=== PATIENT | male | born 1945 | race Caucasian/White ===

== ENCOUNTER 2016-07-22 07:30 | Day surgery (SDC) | payer MEDICARE ==
[~2016-07-22 07:30] MED LIST: ASPI325T PO; CARV6.25 PO; EXEN10PE SQ; GLIP5 PO; MELO7.5T PO; NEXI40CA PO; NITR0.4S SL; OXYC-360 PO; PRIN5TAB PO; SERT50 PO; ZOCO40TA PO
[2016-07-22 08:14] VITALS: BP 116/68; PULSE 78; RESP 18; TEMP 98.6; O2SAT 94
[2016-07-22 09:20] VITALS: BP 115/65; PULSE 56; RESP 18; TEMP 98.9; O2SAT 99
[2016-07-22] MEDS ORDERED: LIDOCAINE HCL 1% PF 30 ML VIAL ONE (09:23)
[2016-07-22 09:35] VITALS: BP 123/62; PULSE 71; RESP 18; O2SAT 98
--- NOTE | 2016-07-22 13:24 | RADRPT ---
EXAM DATE/TIME: 07/22/2016 08:11 [place] COMPARISON: No previous studies available for comparison. EXTERNAL COMPARISON: [facility], CT ABDOMEN & PELVIS W CONTRAST, Jul 12 2016, [facility], US ABDOMEN LIVE R, November 14, 2011, August 12, 2011, February 22, 2011, August 12, 2010, CT ABDOMEN & PELVIS W CONTRAST, October 09, 2009. INDICATIONS : Ascites. MEDICAL HISTORY : Congestive heart failure. Gastroesophageal reflux disease. Hypercholesterolemia. Arthritis. Myocardia l infarction. Diabetes. SURGICAL HISTORY : Multiple cardiac bypasses. Multiple cardiac catheters. Plates and screws in left leg. ENCOUNTER: Initial ACUITY: 3 weeks PAIN SCORE: 4/10 LOCATION: Right lower quadrant FLUID: Total volume of 4,000 cc of clear, yellow fluid was removed. Fluid was discarded. Paracentesis was therapeutic only. Post procedure scanning reveals no hematoma or other complication. TECHNIQUE: 1. Ultrasound guidance for abdominal paracentesis. 2. Paracentesis. The risks, benefits, and alternatives to ultrasound guided paracentesis were explained to the patient in detail including the risk of bleeding and infection. Written and verbal informed consent was obt ained. With the patient on the ultrasound table, ultrasound imaging was used to select the most appropriate approach for paracentesis. Overlying skin was prepped and draped in the usual sterile fashion and wi th a local anesthetic, a dermatotomy was made with an 11 blade scalpel. A 6 [place] [id number] theter was introduced into the peritoneal cavity and fluid was collected. The patient tolerated the procedure well and left the ultrasound suite in stable condition. CONCLUSION: Uncomplicated ultrasound guided paracentesis. Iván Reynoso MD on July 22, 2016 at 13:21 Board Certified Radiologist. This report was verified electronically.
== END 2016-07-22 09:50 | disposition home or self-care (01) ==
LOC: HRAD 07:30 → HRIP 07:31 → HRAD 09:50
PROVIDERS: ATTEND Internal Medicine Gastroenterology
DX: R18.8 Other ascites (principal); I50.9 Heart failure, unspecified; K21.9 Gastro-esophageal reflux disease without esophagitis; E78.00 Pure hypercholesterolemia, unspecified; I25.2 Old myocardial infarction; E11.9 Type 2 diabetes mellitus without complications; M19.90 Unspecified osteoarthritis, unspecified site
CPT/HCPCS: 49083; C1729